=== PATIENT | male | born 1930 ===

== ENCOUNTER 2016-12-23 09:02 | Day surgery (SDC) | payer MEDICARE ==
[2016-12-23 09:19] VITALS: BMI 21.2
[2016-12-23 09:25] LABS: HEMATOCRIT 33.1 % (35.0-51.0); MEAN CELL VOLUME 83.9 fL (80.0-94.0); MEAN CORPUSCULAR HEMOGLOBIN 27.2 pg (27.0-31.0); MEAN CORPUSCULAR HGB CONC 32.5 g/dL (33.0-37.0); MEAN PLATELET VOLUME 8.3 fL (7.2-11.7); RED CELL DISTRIBUTION WIDTH 16.6 % (11.5-14.5); WHITE BLOOD COUNT 6.5 K/uL (4.8-10.8)
[2016-12-23 09:34] LABS: INR 1.2
[2016-12-23 09:36] LABS: CHLORIDE 114 mmol/L (98-107)
[2016-12-23 09:37] LABS: SODIUM 142 mmol/L (132-148)
[2016-12-23 09:39] LABS: CARBON DIOXIDE 19 mmol/L (22-30); GFR AFRICAN-AMERICAN > 60
[2016-12-23 09:40] LABS: BLOOD UREA NITROGEN 8 mg/dL (9-20); GLUCOSE,RANDOM 101 mg/dL (75-110)
[2016-12-23 09:57] LABS: CALCIUM 6.2 mg/dl (8.6-10.4); POTASSIUM 2.8 mmol/L (3.6-5.2)
[2016-12-23] MEDS ORDERED: Potassium Chloride 10 mEq ER Tab PO STA (12:29)
[2016-12-23] MEDS ORDERED: Potassium Chloride 20 mEq 0 MEQ/0 ML BAG IVPB ONE (12:31)
[2016-12-23] MEDS ORDERED: Potassium Chloride 20 mEq ER Tab PO ONE ×2 (12:34→13:00)
[2016-12-23] MEDS ORDERED: Midazolam 2 MG/2 ML VIAL ONE (14:21)
[2016-12-23] MEDS ORDERED: Iodixanol 320 MG/ML 100 ML BOTTLE IV ONE ×2 (14:21→15:28)
[2016-12-23] MEDS ORDERED: Lidocaine 2% Inj (20ml) ONE (14:26)
--- NOTE | 2016-12-23 17:04 | CP.SDSHP ---
Same Day Surgery H & P - History Proposed Procedure: see enclosed consult from Mark. no change. - Allergies Allergies: Allergies No Known Allergies Allergy (Verified 10/25/16 10:12) Short Stay Discharge - Short Stay Discharge Admitting Diagnosis/Reason for Visit: PVD Disposition: HOME/ ROUTINE
[2016-12-23] MEDS ORDERED: Sodium Chloride 0.45% 1,000 ML IV SCH (17:15)
[2016-12-24 14:03] VITALS: RESP 18; O2SAT 100
--- NOTE | 2016-12-26 23:22 | OP ---
PROCEDURE DATE: 12/23/2016. PERFORMING PHYSICIAN: Belkys Cheney MD. PREOPERATIVE DIAGNOSIS: Peripheral vascular disease with claudication of rest pain of the left lower extremity. POSTOPERATIVE DIAGNOSIS: Peripheral vascular disease with claudication of rest pain of the left lower extremity. PROCEDURE PERFORMED: Retrograde access, right common femoral artery, selective catheter placement in the left peroneal artery via contralateral approach, abdominal aortography with bilateral iliofemoral runoff, bilateral lower extremity angiography, drug coated balloon angioplasty of the left superficial femoral artery and balloon angioplasty of the tibioperoneal trunk. SURGEON: Belkys Cheney MD. COMPLICATIONS: None. HISTORY: As follows: The patient is an 86-year-old male with a past medical history of hypertension, hypercholesterolemia, coronary artery disease and peripheral vascular disease, who has severe claudication of rest pain of the left lower extremity. He developed cellulitis. Noninvasive imaging via CT angiography revealed significant stenosis of the left superficial femoral artery as well as tibioperoneal trunk. The patient has had previous drug-eluting stent placement in the left peroneal artery, which supplies single vessel runoff to the left foot. He is referred for angiography and possible intervention. DESCRIPTION OF PROCEDURE: After informed consent was obtained, the right common femoral artery was accessed and a 5 Japanese sheath was inserted. An Omniflush catheter was advanced into the infrarenal abdominal aorta. Abdominal aortography was performed. The catheter was then positioned at the iliac bifurcation. Bilateral iliofemoral runoff was performed. The selective catheter placement was obtained and the patient was prepared for intervention as described separately below. FINDINGS: The infrarenal abdominal aorta is free of aneurysm or dissection. Bilateral renal arteries arise normally. There is mild atherosclerosis of the common iliac arteries bilaterally. The internal iliac arteries exhibited mild diffuse disease. The external iliac artery exhibited mid disease bilaterally. Bilateral common femoral arteries are patent. In the right leg, the right profunda femoris has diffuse disease. There is eccentric calcification noted on the superficial femoral arteries. There is mild disease noted of the right superficial femoral artery as well as popliteal artery. Single-vessel runoff is noted via the right anterior tibial artery. In the left leg, there is mild diffuse disease of the left peroneal artery. There is 80% stenosis of the distal left superficial femoral artery. Eccentric calcification is noted. The left popliteal artery has a 30% stenosis in the mid portion. There is single-vessel runoff via the left peroneal artery. The left anterior tibial artery is occluded 100% proximally. There is severe sequential stenoses of the proximal left tibioperoneal trunk. The proximal left peroneal artery has been previously stented. There is mild in stent restenosis. The peroneal artery is patent to the level of the foot. INTERVENTION: The patient was anticoagulated with heparin to achieve a therapeutic activated clotting time. The sheath was exchanged for a 6 x 45 cm Cook Gamaliel sheath, which was selectively placed on the left common femoral artery. Selective angiography was performed. Heparin was given. An Gini BareWire was advanced to the popliteal artery. An Gini NAV6 Emboshield was then deployed in the proximal popliteal artery. A 4 x 60 mm balloon was used to perform balloon angioplasty of the distal left superficial femoral artery. A residual 40% stenosis was noted. A [employer] 5 x 80 mm drug coated balloon was positioned and drug coated balloon angioplasty was performed. There was a 5% residual stenosis. The balloons removed and the Emboshield was retrieved. The [employer] ES guidewire was then advanced across the stenosis in the tibioperoneal trunk and positioned in the distal left peroneal artery. Angioplasty was performed with the 3 x 16 mm balloon of the proximal left tibioperoneal trunk. Post balloon angioplasty revealed 20% residual stenosis. Brisk antegrade flow was noted. The guidewire was removed. The sheath was removed and Angio-Seal device was deployed to achieve hemostasis without complication. CONCLUSION: Successful drug coated balloon angioplasty on the left superficial femoral artery and successful balloon angioplasty of the left tibioperoneal trunk. PLAN: The patient will continue with antiplatelet therapy. Belkys Cheney MD
== END 2016-12-23 17:20 | disposition short-term general hospital (02) ==
LOC: C.CATHLAB 09:02
PROVIDERS: ATTEND Internal Medicine Cardiovascular Disease
DX: I73.9 Peripheral vascular disease, unspecified (principal)
CPT/HCPCS: 36247; 36415; 37228; 75625; 75716; 75774; 80048; 82948; 84132; 85027; 85347; 85610; 85730; 94770; C1725; C1760; C1766; C1769; C1884; C1887; J1644; J2250; J3480; J7030; Q9967